=== PATIENT | male | born 1965 | race Caucasian/White ===

== ENCOUNTER 2022-05-09 10:11 | Inpatient (IN) ==
[2022-05-09] MEDS ORDERED: fentaNYL 100 MCG/2 ML VIAL IV STA ×2 (10:41→13:10)
[2022-05-09] MEDS ORDERED: ONDANSETRON 4 MG/2 ML VIAL IV STA (10:41)
[2022-05-09] MEDS ORDERED: diphenhydrAMINE 50 MG/1 ML VIAL IV STA (10:49)
[2022-05-09] MEDS ORDERED: methylPREDNISolone SOD SUC 125 MG/2 ML VIAL IV STA (10:49)
[2022-05-09 10:54] LABS: RBC,Urine <1 /HPF (0-4)
[2022-05-09 10:55] LABS: Basophils % 0.2 % (0.0-0.8); Eosinophils % 0.1 % (0.00-10.9); Hematocrit 40.2 VOL% (42.0-52.0); Hemoglobin 13.3 GM/DL (14.0-18.0); Immature Granulocytes % 0.4 %; Immature Granulocytes Absolute 0.06 #; Lymphocytes # 2.1 10*3/uL (1.4-4.0); Lymphocytes % 13.8 % (21.2-54.2); Mean Corpuscular HGB Conc 33.1 GM/DL (32-36); Mean Corpuscular Volume 81.2 FL (87-102); Monocytes # 2.3 10*3/uL (0.11-0.8); Monocytes % 15.5 % (1.7-12.7); Platelet Count 238 T/CUMM (130-400); Red Blood Count 4.95 MC/CUMM (3.8-5.5); Red Cell Distribution Width 14.8 % (9.3-17.3); Urine Appearance Clear (Clear); Urine Color Straw (Yellow); Urine Specific Gravity < 1.005 (1.001-1.035); Urine pH 5.5 (4.5-8.0); White Blood Count 14.94 T/CUMM (4-12)
[2022-05-09 10:56] LABS: Bilirubin,Urine Negative (Negative); Blood, Urine Trace mg/dL (Negative); Glucose,Urine (UA) Negative (Negative); Ketones,Urine Negative (Negative); Nitrite,Urine Negative (Negative); Protein,Urine Negative (Negative); Urine Urobilinogen 0.2 eU/dL (<2.0)
[2022-05-09 11:14] LABS: Albumin 4.2 G/DL (3.4-5.0); Bilirubin,Total 0.6 MG/DL (0.20-1.00); Calcium 9.5 MG/DL (8.5-10.1); Osmolality,Calculated 279.7 MOS/KG (273-304); Potassium 3.3 MMOL/L (3.5-5.1)
[2022-05-09 11:42] LABS: Anisocytosis Slight; Band Neutrophils 2 % (0-10); Lymphocytes 14 % (20-55); Platelet Estimate Normal; Total Cells Counted 100
[2022-05-09] MEDS ORDERED: cefTRIAXone 1,000 MG in SODIUM CHLORIDE 0.9% 100 ML IV STA (12:25)
[2022-05-09] MEDS ORDERED: POTASSIUM CHLORIDE RIDER 10 MEQ/100 ML PREMIX IV PRN (13:07)
[2022-05-09] MEDS ORDERED: LACTATED RINGERS 1,000 ML IV ONE (13:07)
[2022-05-09] MEDS: LACTATED RINGERS 1,000 ML IV SCH ×2 (14:50→22:30)
[2022-05-09] MEDS: TOPIRAMATE 100 MG TABLET PO SCH (17:16)
[2022-05-09] MEDS: SERTRALINE 100 MG TABLET PO SCH (17:16)
[2022-05-09] MEDS: NIFEdipine 10 MG CAPSULE PO SCH ×2 (17:16→20:50)
[2022-05-09] MEDS: SIMVASTATIN 20 MG TABLET PO SCH (17:16)
[2022-05-09] MEDS: PROPRANOLOL 20 MG TABLET PO SCH (17:16)
[2022-05-09] MEDS: ONDANSETRON 4 MG/2 ML VIAL IV PRN (18:39)
[2022-05-09] MEDS: TAMSULOSIN 0.4 MG CAPSULE PO SCH (20:50)
[2022-05-09] MEDS: GABAPENTIN 600 MG TABLET PO SCH (20:50)
[2022-05-09] MEDS ORDERED: ZALEPLON 5 MG CAPSULE PO PRN (21:53)
[2022-05-10] MEDS: PANTOPRAZOLE 40 MG TABLET PO SCH (05:35)
[2022-05-10] MEDS: ONDANSETRON 4 MG/2 ML VIAL IV PRN (05:35)
[2022-05-10 06:08] LABS: Calcium 8.9 MG/DL (8.5-10.1); Osmolality,Calculated 288.1 MOS/KG (273-304); Potassium 3.4 MMOL/L (3.5-5.1)
[2022-05-10 06:18] LABS: Basophils % 0.1 % (0.0-0.8); Eosinophils % 0.1 % (0.00-10.9); Hematocrit 36.7 VOL% (42.0-52.0); Hemoglobin 11.8 GM/DL (14.0-18.0); Immature Granulocytes % 2.1 %; Immature Granulocytes Absolute 0.29 #; Lymphocytes % 14.7 % (21.2-54.2); Mean Corpuscular HGB Conc 32.2 GM/DL (32-36); Mean Corpuscular Volume 82.7 FL (87-102); Mean Platelet Volume 11.7 FL (9.6-12.0); Monocytes # 2.1 10*3/uL (0.11-0.8); Monocytes % 15.4 % (1.7-12.7); Neutrophils % 67.6 % (38.7-73.9); Platelet Count 205 T/CUMM (130-400); Red Blood Count 4.44 MC/CUMM (3.8-5.5); Red Cell Distribution Width 15.2 % (9.3-17.3); White Blood Count 13.83 T/CUMM (4-12)
[2022-05-10] MEDS: LACTATED RINGERS 1,000 ML IV SCH ×5 (06:24→23:00)
[2022-05-10] MEDS ORDERED: HYDROmorphone 1 MG/1 ML SYRINGE IV PRN (08:00)
[2022-05-10] MEDS ORDERED: cefTRIAXone 1,000 MG in SODIUM CHLORIDE 0.9% 100 ML IV ONE (09:00)
[2022-05-10] MEDS: NIFEdipine 10 MG CAPSULE PO SCH ×4 (11:30→21:04)
[2022-05-10] MEDS: TOPIRAMATE 100 MG TABLET PO SCH ×2 (11:30→16:57)
[2022-05-10] MEDS: VENLAFAXINE XR 75 MG CAPSULE PO SCH (11:30)
[2022-05-10] MEDS: GABAPENTIN 600 MG TABLET PO SCH ×2 (11:30→21:04)
[2022-05-10] MEDS: OMEGA 3 ACID ETHYL ESTERS 1 GM CAPSULE PO SCH (11:30)
[2022-05-10] MEDS: FENOFIBRATE 145 MG TABLET PO SCH (11:31)
[2022-05-10] MEDS ORDERED: MIDAZOLAM 2 MG/2 ML VIAL ONE (11:49)
[2022-05-10] MEDS ORDERED: propofoL 200 MG/20 ML VIAL IV ONE (11:49)
[2022-05-10] MEDS ORDERED: LIDOCAINE 2% 5 ML VIAL ONE (11:49)
[2022-05-10] MEDS ORDERED: fentaNYL 100 MCG/2 ML VIAL ONE (11:49)
[2022-05-10] MEDS ORDERED: ONDANSETRON 4 MG/2 ML VIAL ONE (13:08)
[2022-05-10] MEDS ORDERED: METOCLOPRAMIDE 10 MG/2 ML VIAL ONE (13:09)
[2022-05-10] MEDS ORDERED: SEVOFLURANE 1 UNIT/15 MINUTE INH ONE (13:40)
[2022-05-10] MEDS ORDERED: KETOROLAC 30 MG/1 ML VIAL ONE (13:40)
[2022-05-10] MEDS ORDERED: FUROSEMIDE 20 MG/2 ML VIAL ONE (13:42)
[2022-05-10] MEDS ORDERED: LACTATED RINGERS 1,000 ML IV ONE (13:47)
[2022-05-10] MEDS: VANCOMYCIN INJ 1,500 MG in SODIUM CHLORIDE 0.9% 500 ML IV SCH (15:13)
[2022-05-10] MEDS: SERTRALINE 100 MG TABLET PO SCH (17:00)
[2022-05-10] MEDS: PROPRANOLOL 20 MG TABLET PO SCH (17:00)
[2022-05-10] MEDS: SIMVASTATIN 20 MG TABLET PO SCH (17:00)
[2022-05-10] MEDS: ENOXAPARIN 40 MG/0.4 ML SYRINGE SUBCUT SCH (21:04)
[2022-05-10] MEDS: TAMSULOSIN 0.4 MG CAPSULE PO SCH (21:04)
[2022-05-11] MEDS: VANCOMYCIN INJ 1,500 MG in SODIUM CHLORIDE 0.9% 500 ML IV SCH ×2 (02:55→14:53)
[2022-05-11 05:18] LABS: Basophils % 0.4 % (0.0-0.8); Eosinophils # 0.3 10*3/uL (0.0-0.87); Eosinophils % 3.7 % (0.00-10.9); Hematocrit 35.2 VOL% (42.0-52.0); Hemoglobin 11.2 GM/DL (14.0-18.0); Immature Granulocytes % 0.2 %; Immature Granulocytes Absolute 0.02 #; Lymphocytes # 2.4 10*3/uL (1.4-4.0); Mean Corpuscular HGB Conc 31.8 GM/DL (32-36); Mean Corpuscular Volume 84.8 FL (87-102); Mean Platelet Volume 11.9 FL (9.6-12.0); Monocytes # 1.8 10*3/uL (0.11-0.8); Monocytes % 19.5 % (1.7-12.7); Neutrophils % 49.2 % (38.7-73.9); Platelet Count 165 T/CUMM (130-400); Red Blood Count 4.15 MC/CUMM (3.8-5.5); Red Cell Distribution Width 15.4 % (9.3-17.3); White Blood Count 8.96 T/CUMM (4-12)
[2022-05-11] MEDS: PANTOPRAZOLE 40 MG TABLET PO SCH (05:19)
[2022-05-11 05:35] LABS: Calcium 8.3 MG/DL (8.5-10.1); Osmolality,Calculated 294.7 MOS/KG (273-304); Potassium 3.3 MMOL/L (3.5-5.1)
[2022-05-11 06:00] LABS: Eosinophils 7 % (0-10); Lymphocytes 23 % (20-55); Total Cells Counted 100
[2022-05-11 06:01] LABS: Platelet Estimate Adequate
[2022-05-11] MEDS ORDERED: MAGNESIUM SULF RIDER 4 GM/100 ML PREMIX IV PRN (09:38)
[2022-05-11] MEDS ORDERED: MAGNESIUM SULF RIDER 2 GM/50 ML PREMIX IV PRN (09:38)
[2022-05-11] MEDS: GABAPENTIN 600 MG TABLET PO SCH ×2 (10:38→20:21)
[2022-05-11] MEDS: NIFEdipine 10 MG CAPSULE PO SCH ×4 (10:38→20:21)
[2022-05-11] MEDS: VENLAFAXINE XR 75 MG CAPSULE PO SCH (10:39)
[2022-05-11] MEDS: TOPIRAMATE 100 MG TABLET PO SCH ×2 (10:40→17:17)
[2022-05-11] MEDS: ACETAMINOPHEN 325 MG TABLET PO PRN ×2 (10:40→14:50)
[2022-05-11] MEDS: FENOFIBRATE 145 MG TABLET PO SCH (10:41)
[2022-05-11] MEDS: OMEGA 3 ACID ETHYL ESTERS 1 GM CAPSULE PO SCH (10:41)
[2022-05-11] MEDS: cefTRIAXone 1,000 MG in SODIUM CHLORIDE 0.9% 100 ML IV SCH (10:42)
[2022-05-11] MEDS ORDERED: POTASSIUM CHLORIDE 20 MEQ TABLET PO ONE (12:23)
[2022-05-11] MEDS: LACTATED RINGERS 1,000 ML IV SCH ×2 (14:53→20:30)
[2022-05-11] MEDS: PROPRANOLOL 20 MG TABLET PO SCH (17:17)
[2022-05-11] MEDS: SERTRALINE 100 MG TABLET PO SCH (17:17)
[2022-05-11] MEDS: SIMVASTATIN 20 MG TABLET PO SCH (17:17)
[2022-05-11] MEDS: TAMSULOSIN 0.4 MG CAPSULE PO SCH (20:21)
[2022-05-11] MEDS: ENOXAPARIN 40 MG/0.4 ML SYRINGE SUBCUT SCH (20:21)
[2022-05-12] MEDS: VANCOMYCIN INJ 1,500 MG in SODIUM CHLORIDE 0.9% 500 ML IV SCH ×2 (01:18→15:24)
[2022-05-12] MEDS: PANTOPRAZOLE 40 MG TABLET PO SCH (05:43)
[2022-05-12 06:05] LABS: Basophils # 0.1 10*3/uL (0.0-0.2); Basophils % 0.9 % (0.0-0.8); Eosinophils # 0.5 10*3/uL (0.0-0.87); Hematocrit 36.3 VOL% (42.0-52.0); Hemoglobin 11.8 GM/DL (14.0-18.0); Immature Granulocytes % 0.2 %; Immature Granulocytes Absolute 0.01 #; Lymphocytes # 1.8 10*3/uL (1.4-4.0); Lymphocytes % 31.8 % (21.2-54.2); Mean Corpuscular HGB Conc 32.5 GM/DL (32-36); Mean Corpuscular Volume 85.2 FL (87-102); Mean Platelet Volume 12.4 FL (9.6-12.0); Monocytes % 17.2 % (1.7-12.7); Neutrophils % 40.9 % (38.7-73.9); Platelet Count 172 T/CUMM (130-400); Red Blood Count 4.26 MC/CUMM (3.8-5.5); Red Cell Distribution Width 15.1 % (9.3-17.3); White Blood Count 5.76 T/CUMM (4-12)
[2022-05-12 06:10] LABS: Calcium 9.3 MG/DL (8.5-10.1); Osmolality,Calculated 284.1 MOS/KG (273-304); Potassium 3.5 MMOL/L (3.5-5.1)
[2022-05-12 06:44] LABS: Atypical Lymphocytes Few; Band Neutrophils 3 % (0-10); Eosinophils 13 % (0-10); Lymphocytes 31 % (20-55); Platelet Estimate Normal; Total Cells Counted 100
[2022-05-12] MEDS: LACTATED RINGERS 1,000 ML IV SCH ×2 (10:27→15:24)
[2022-05-12] MEDS: TOPIRAMATE 100 MG TABLET PO SCH (10:27)
[2022-05-12] MEDS: OMEGA 3 ACID ETHYL ESTERS 1 GM CAPSULE PO SCH (10:28)
[2022-05-12] MEDS: GABAPENTIN 600 MG TABLET PO SCH (10:28)
[2022-05-12] MEDS: VENLAFAXINE XR 75 MG CAPSULE PO SCH (10:28)
[2022-05-12] MEDS: NIFEdipine 10 MG CAPSULE PO SCH ×2 (10:29→15:24)
[2022-05-12] MEDS: cefTRIAXone 1,000 MG in SODIUM CHLORIDE 0.9% 100 ML IV SCH (10:29)
[2022-05-12] MEDS: FENOFIBRATE 145 MG TABLET PO SCH (10:29)
[2022-05-12 12:12] VITALS: BP 144/77
[2022-05-16 16:24] LABS: Stone Source Kidney
== END 2022-05-12 15:32 | disposition home or self-care (01) | DRG 661 ==
LOC: N.ED 10:11 → N.EDINP 13:04 → N.2E 15:52
PROVIDERS: ADMIT Hospitalist; ATTEND Hospitalist